=== PATIENT | male | born 1950 | race Caucasian/White ===

== ENCOUNTER 2021-11-21 17:32 | Emergency (ER) | payer MEDICARE ==
[~2021-11-21] VITALS: Ht 185.4 cm; Wt 72.6 kg
[~2021-11-21 17:32] MED LIST: ASPIR 8181 MG PO; BACTRIM DS TAB1 EACH PO; CLINDAMYCIN HC150 MG PO; COQ-1030 MG PO; COZAAR25 MG PO; GLUCOPHAGE1000 MG PO; HYDROMORPHONE HC2 MG PO; LANTUS SOL100 UNIT/1 SUB-Q; LOSARTAN-HCTZ1 EAC1 PO; METOPROLOL SUCC25 MG PO; PRAVACHOL20 MG PO
--- NOTE | 2021-11-21 20:27 | EKG ---
[facility] [address] [facility] [place], [place] [address] Signed Normal sinus rhythm Normal ECG No previous ECGs available Confirmed by YAMINI ASHLEY MD ([id number] on 11/21/2021 8:26:53 PM Electronically Signed By: YAMINI ASHLEY MD 11/21/212026 PATIENT NAME: JOSE FIGUEROA Electrocardiogram DATE OF : 52 PHYSICIAN: YAMINI ASHLEY MD REPORT #: [id number] REPORT IS CONFIDENTIAL AND NOT TO BE RELEASED WITHOUT AUTHORIZATION
[2021-11-21] MEDS ORDERED: MIRALAX17 GM PO (21:52)
== END 2021-11-21 22:17 | disposition home or self-care (01) ==
LOC: ED 17:32
DX: K59.00 Constipation, unspecified (principal); E86.0 Dehydration; I10 Essential (primary) hypertension; E11.9 Type 2 diabetes mellitus without complications; F17.200 Nicotine dependence, unspecified, uncomplicated; Z88.0 Allergy status to penicillin; Z88.5 Allergy status to narcotic agent; Z88.8 Allergy status to other drugs, medicaments and biological substances; Z79.899 Other long term (current) drug therapy; Z79.84 Long term (current) use of oral hypoglycemic drugs; Z79.4 Long term (current) use of insulin; Z79.82 Long term (current) use of aspirin
CPT/HCPCS: 36415; 51701; 71045; 74177; 80053; 81001; 83605; 85025; 93005; 93010; 99285-25; J1815; J7121; Q9967

== ENCOUNTER 2021-12-14 09:03 | Day surgery (SDC) | payer MEDICARE ==
[~2021-12-14] VITALS: Ht 185.4 cm; Wt 86.2 kg
[~2021-12-14 09:03] MED LIST changes: +MIRALAX17 GM PO
--- NOTE | 2021-12-14 11:37 | NUR ---
12/14/21 1137 Melida Jaimes 1134 PATIENT ARRIVES TO PACU AWAKE BUT DROWSY. DENIES PAIN OR NAUSEA. RESP EVEN AND UNLABORED, NC ON AT 2 LITERS, TURNED OFF.
--- NOTE | 2021-12-14 16:38 | OR ---
[facility] [address] [place], [place] [address] Signed DATE OF OPERATION: 12/14/2021 SURGEON: Dao Meade MD PREOPERATIVE DIAGNOSES: 1. Recent sigmoid diverticulitis. 2. Dysuria. POSTOPERATIVE DIAGNOSES: 1. Colonic edema and stricture at 40 cm. 2. Large sigmoid diverticulum x1. PROCEDURE: Sigmoidoscopy without biopsy up to 40 cm. ESTIMATED BLOOD LOSS: None. INDICATIONS: Hari is a 71-year-old gentleman, who is diabetic and asked to see me for a colonoscopy. He had a screening colonoscopy in [address] Smith in [place], [place]. He was said to have diverticulosis. He said he is adopted and has no knowledge of his family history. He said for the last year he has been having trouble with dysuria and urinary frequency, which he attributed to his Peyronie's disease. When his symptoms had escalated, he had gone to the emergency room up at [facility] in [place], [place]. He was initially treated for urinary tract infection and bacteremia with E coli. He was also found to be COVID positive. However, a CT scan showed an area of inflamed sigmoid colon next to his bladder. It sounds like he failed outpatient antibiotics. He had to be admitted for IV antibiotics. He said overall he is much better. There has been quite a bit of stool up against the area of the bladder on the CT scan. He has no pneumaturia. He said he is feeling much better. He denies pain and says MiraLAX every day has been working quite well. No pain with bowel movements. He went to see a urologist at our [facility]. They had none of his records. He was scheduled for an ultrasound and asked to follow up for cystoscopy. In the meantime, he came to my office with his . In the office, I had given him a pamphlet on colonoscopy and we had reviewed that together in detail. He understands there is risk including, but not limited to gas bloating, crampy abdominal pain, bleeding, perforation requiring surgery, and missed diagnosis. We also reviewed the need for IV conscious sedation. He had expressed understanding and wished to proceed. Electronically Signed By: DAO MEADE MD 12/14/21 1638 PATIENT NAME: HARI FIGUEROA OPERATIVE REPORT DATE OF : 52 REPORT #: [id number] PHYSICIAN: DAO MEADE MD PCP: RADHA CORDON PA-C REPORT IS CONFIDENTIAL AND NOT TO BE RELEASED WITHOUT AUTHORIZATION [facility] [address] [place], [place] [address] Signed DESCRIPTION OF PROCEDURE: Hari was taken into our endoscopy suite and placed in the left lateral decubitus position. He was given a total of 125 mcg of fentanyl and 8 mg of Versed to cover the case. A digital rectal exam was performed. He had good sphincter tone. Not much in way of external hemorrhoids. His prostate gland is moderately indurated and swollen. The adult colonoscope was introduced and advanced under direct visualization of the camera. We passed a moderately large diverticulum in the sigmoid colon. And then up to 40 cm, we encountered edematous colonic stricture. We did not see any obvious evidence for cancer. We spent several minutes trying to navigate our way through this area without success. We had taken pictures throughout for photodocumentation. The scope was then slowly withdrawn. We retroflexed the scope in the rectum and no additional pathology was noted above the anal canal. After this, the gas was suctioned out and the colonoscope removed. Hari tolerated the procedure quite well. RECOMMENDATIONS: We are going to repeat Hari's blood work today along with a CEA level. This looks to be diverticular disease associated with the bladder. I have already reviewed that in detail with him in the office. We will have him back in the office in about a week for followup. Dao Meade MD ALB/MODL /[id number] cc: MD Radha Contreras PA-C Copies: DAO MEADE MD, CHLOE K PA-C ~ Electronically Signed By: DAO MEADE MD 12/14/21 1638 PATIENT NAME: HARI FIGUEROA OPERATIVE REPORT DATE OF : 52 REPORT #: [id number] PHYSICIAN: DAO MEADE MD PCP: RADHA CORDON PA-C REPORT IS CONFIDENTIAL AND NOT TO BE RELEASED WITHOUT AUTHORIZATION
== END 2021-12-14 12:15 | disposition home or self-care (01) ==
LOC: OPS 09:03 → DS 09:03 → OPS 10:30 → DS 10:30 → OPS 12:15
PROVIDERS: ATTEND Colon & Rectal Surgery
PROC: 0DJD8ZZ Inspection of Lower Intestinal Tract, Via Natural or Artificial Opening Endoscopic (ICD-10-PCS; principal; 2021-12-14 10:30)
DX: K56.699 Other intestinal obstruction unspecified as to partial versus complete obstruction (principal); K57.30 Diverticulosis of large intestine without perforation or abscess without bleeding; R30.0 Dysuria; R35.0 Frequency of micturition; I25.810 Atherosclerosis of coronary artery bypass graft(s) without angina pectoris; E11.9 Type 2 diabetes mellitus without complications; Z86.16 Personal history of COVID-19; I10 Essential (primary) hypertension; I25.2 Old myocardial infarction; Z79.84 Long term (current) use of oral hypoglycemic drugs; Z88.5 Allergy status to narcotic agent; Z88.0 Allergy status to penicillin
CPT/HCPCS: 36415; 80053; 82378; 85025; 99153; G0500; J2250; J3010

== ENCOUNTER 2022-01-06 08:40 | Emergency (ER) | payer MEDICARE ==
[~2022-01-06] VITALS: Ht 185.4 cm; Wt 85.7 kg
[2022-01-06] MEDS ORDERED: TAMSULOSIN HCL0.4 MG PO (08:51)
[2022-01-06] MEDS ORDERED: METOPROLOL TART50 MG PO (08:51)
[2022-01-06] MEDS ORDERED: FLUOXETINE HCL20 MG PO (08:52)
[2022-01-06] MEDS ORDERED: LOSARTAN POTAS100 MG PO (08:52)
[2022-01-06] MEDS ORDERED: ROSUVASTATIN CA20 MG PO (08:52)
[2022-01-06] MEDS ORDERED: TRAMADOL HCL50 MG PO (08:52)
[2022-01-06] MEDS ORDERED: METFORMIN HCL500 M1 PO (08:52)
== END 2022-01-06 09:27 | disposition home or self-care (01) ==
LOC: ED 08:40
DX: R30.0 Dysuria (principal); I10 Essential (primary) hypertension; E11.9 Type 2 diabetes mellitus without complications; F17.200 Nicotine dependence, unspecified, uncomplicated; Z88.0 Allergy status to penicillin; Z88.5 Allergy status to narcotic agent; Z88.8 Allergy status to other drugs, medicaments and biological substances; Z91.048 Other nonmedicinal substance allergy status; Z79.899 Other long term (current) drug therapy; Z79.82 Long term (current) use of aspirin; Z79.4 Long term (current) use of insulin
CPT/HCPCS: 81001; 99283